=== PATIENT | male | born 1965 | race Two or more races ===

== ENCOUNTER 2024-09-06 15:10 | Outpatient (AMB) | payer OTHER, SELFPAY ==
--- NOTE | 2024-09-06 15:18 | A.OFFPC_ITS ---
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 Accompanied by: Self / Same As Patient Allergies No Known Allergies Allergy (Verified 09/06/24 15:33) Medication List - Last Reconciled 09/06/24 by Katherine Palacios PA-C metformin 500 mg PO BID Tobacco use date assessed: 09/06/24 Dental Screening Dental Screen Date: 09/06/24 Did you have a dental visit in the last 12 months?: Yes Did you have a dental problem in the last 6 months where you did not have access to dental care?: No Was dental information given to patient?: Patient has dentist (has upper dentures) HPI establish care HPI Details The patient is a 59-year-old male presenting to establish a new primary care provider and for the management of Type 2 Diabetes Mellitus and associated gastrointestinal discomfort from Metformin use. The patient has been taking Metformin 500 mg twice daily but experiences gastrointestinal discomfort, particularly when taking a 1000 mg dose, which causes stomach upset. He reports that the quick-release formulation exacerbates these symptoms, and he is interested in trying the extended-release version to alleviate this issue. The patient has not been regularly monitoring his blood glucose levels and last checked them six months ago. He has been using natural remedies such as kombucha and kefir, which he feels have been beneficial, although he acknowledges the need for more exercise. Additionally, the patient reports a sensation of coldness in his legs, which he attributes to possible venous issues. He maintains an active lifestyle by performing foot exercises to keep his legs active. 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 - He currently lives with his and sandy max, having moved to be closer to family. - The patient engages in physical activi ty through foot exercises to maintain leg function. [facility] Medical History (Updated 09/06/24 @ 15:59 by Katherine Palacios PA-C) Type 2 diabetes mellitus with hemoglobin A1c goal of less than 7.0% Class 1 obesity with body mass index (BMI) of 31.0 to 31.9 in adult Varicose veins of both lower extremities Establishing care with new doctor, encounter for Family History Father Diabetes Parkinson disease Mother Aneurysm Social History Housing: Apartment Alcohol intake: current Alcohol intake frequency: does not drink Patient Tobacco Use Status: Never used Tobacco service: No Current occupational status: employed Cognitive needs: No Hearing needs: No Vision needs: Yes (reading glasses) Questionnaire PHQ-9 Over the last 2 weeks, how often have you been bothered by any of the following problems? 1. Little interest or pleasure in doing things: not at all 2. Feeling down, depressed, or hopeless: not at all 3. Trouble falling or staying asleep, or sleeping too much: not at all 4. Feeling tired or having little energy: not at all 5. Poor appetite or overeating: not at all 6. Feeling bad about yourself - or that you are a failure or have let yourself or your family down: not at all 7. Trouble concentrating on things, such as reading the newspaper or watching television: not at all 8. Moving or speaking so slowly that other people could have noticed. Or the opposite - being so fidgety or restless that you have been moving around a lot more than usual: not at all 9. Thoughts that you would be better off or of hurting yourself in some way: not at all Total score: 0 Depression Screening Interpretation: Negative Depression Screening Done: Yes 64491 - PHQ-9 Billing: Yes Source: Developed by Drs. Candido Montero, Lexi Corbett, Lobo Vivas and colleagues, with an educational kristy from [employer]. Thrive Questionnaire Date Thrive assessed: 09/06/24 I am a: Patient What is your living situation today?: I have a steady place to live Within the past 12 months, did the food you bought not last and you didn't have the money to get more?: Never true Within the past 12 months, did you worry whether your food would run out before you got money to buy more?: Never true Do you have trouble paying for medicines?: No Do you have trouble getting transportation to medical appointments?: No Do you have trouble paying your heating and electricity bill?: No Do you have trouble taking care of your child, family member or friend?: No Do you have trouble with day-to-day activities such as bathing, preparing meals, shopping, managing finances, etc.?: No Are you currently unemployed and looking for a job?: No Are you interested in more education?: No Please select the resources that you would like help with: None THRIVE Score: 0 AUDIT C Alcohol Use Questionnaire (AUDIT-C) 1. How often do you have a drink containing alcohol?: Never 3. How often do you have six or more drinks on one occasion?: Never Total Score: 0 Score Reviewed/Action Taken: No ESCOBAR-7 AMB Questionnaire ESCOBAR-7 Date ESCOBAR - 7 assessed: 09/06/24 Feeling nervous, anxious, or on edge: 0 = Not at all Not being able to stop or control worryin = Not at all Worrying too much about different things: 0 = Not at all Trouble relaxin = Not at all Being so restless that it is hard to sit still: 0 = Not at all Becoming easily annoyed or irritable: 0 = Not at all Feeling afraid as if something awful might happen: 0 = Not at all Total ESCOBAR-7 score (0-4 normal; 5-9 mild; 10-14 moderate; 15-21 severe): 0 Source: Developed by Drs. Candido Montero, Lexi Corbett, Lobo Vivas and colleagues, with an educational kristy from [employer]. ESCOBAR-7 Assessment Billing ESCOBAR-7 Assessment Tool: ESCOBAR-7 Assessment 56081 Review of Systems Const Details: - Gastrointestinal: Reports gastrointestinal discomfort with Metformin use. - Endocrine: Reports not regularly checking blood glucose levels. - Musculoskeletal: Reports sensation of coldness in legs, denies cramps. Physical exam (Primary Care) Vital Signs: Last Vital Signs Temp 97.6 F 09/06/24 15:23 Pulse 68 09/06/24 15:23 Resp 16 09/06/24 15:23 BP 115/66 09/06/24 15:23 Pulse Ox 99 09/06/24 15:23 Oxygen Delivery Method Room Air 09/06/24 15:23 Care Plan Goal for BP management: <140/90 at Goal BMI result Body Mass Index 31.1 BMI Assessment/Plan discussion: High BMI High, discussed plan: lifestyle, weight reduction, dietary, physical activity, alcohol moderation and other Tobacco/Smoking Status: Tobacco use Status Tobacco use date assessed 09/06/24 09/06/24 15:29 Patient Tobacco Use Status Never used Tobacco 09/06/24 15:29 PHQ-9: PHQ-9 Score PHQ-9: Total score 0 09/06/24 15:34 Depression Screening Interpretation: Negative Thrive Assessment: Date of Thrive Assessment Date Thrive assessed 09/06/24 09/06/24 15:29 Const Other: Appearance: Alert. Oriented X3. No acute distress. Head: Normal external exam. Normocephalic. Atraumatic. Eyes: Pupils are equal, round, and reactive to light. Extraocular movements intact. Conjunctiva and sclera normal. Eyelids normal. Ears: External auditory canal normal. Tympanic membranes normal. Throat: Pharynx normal. Uvula midline. Moist mucous membranes. Neck: Normal inspection. Neck supple. Full range of motion. No adenopathy. Thyroid Normal. No meningeal signs. No neck mass noted. Cardiovascular: Normal heart rate and rhythm. Heart sound normal. No murmurs noted. Pulses normal throughout. Respiratory: No respiratory distress. Painless inspiration. Breath sounds normal. No wheezes/rales/rhonchi noted. Chest nontender. No accessory muscle usage noted or decreased air movement noted. Abdomen: Soft and nontender. Bowel sounds normal in all 4 quadrants. No distention noted. No organomegaly noted. No visible injury noted. Back: No costovertebral angle tenderness. Full range of motion noted. Skin: Skin warm and dry. Normal skin color. Normal skin turgor. No rashes/lesions/lacerations noted. Extremities: No lower extremity edema. Extremities exhibit normal range of motion. Extremities nontender. Patient reports feeling of coldness in the legs, but no swelling observed. Neuro: Oriented X 3. No motor deficit. No sensory deficit. Reflexes normal. Results AMB Hemoglobin A1c AMB Hemoglobin A1c 10.2 % Last Edit by KARISHMA Perales on 09/06/24 15:4 3 Results Reviewed Results Reviewed: - Labs: Hemoglobin A1c 10.2%. Coding Level of Care Code New Pt Level 4 (46217) Complex EM visit Add On G2211 Diagnoses Establishing care with new doctor, encounter for Z76.89 Type 2 diabetes mellitus with hemoglobin A1c goal of less than 7.0% E11.9 Varicose veins of both lower extremities I83.93 Class 1 obesity with body mass index (BMI) of 31.0 to 31.9 in adult E66.811; Z68.31 Additional Codes PHQ-9 - 70795 - PHQ-9 Billing: Yes ([id number]) ESCOBAR-7 Assessment Billing - ESCOBAR-7 Assessment Tool: ESCOBAR-7 Assessment 78523 ([id number]) Assessment & Plan Assessment & Plan (1) Establishing care with new doctor, encounter for: Code(s): Z76.89 - Persons encountering health services in other specified circumstances Category: Medical (2) Type 2 diabetes mellitus with hemoglobin A1c goal of less than 7.0%: Code(s): E11.9 - Type 2 diabetes mellitus without complications Category: Medical Plan: The patient's Metformin dosage will be adjusted to 1000 mg extended-release twice daily to minimize gastrointestinal side effects. He is advised to monitor his blood glucose levels three times daily before meals and return for follow-up in one month. A new glucometer will be provided to ensure accurate readings. Condition is chronic and stable continue to monitor. (3) Varicose veins of both lower extremities: Code(s): I83.93 - Asymptomatic varicose veins of bilateral lower extremities Category: Medical Plan: The patient reports cold sensation in legs, possibly related to venous issues, and will be referred to a specialist if symptoms persist. Condition is chronic and stable continue to monitor. (4) Class 1 obesity with body mass index (BMI) of 31.0 to 31.9 in adult: Code(s): E66.811 - Obesity, class 1; Z68.31 - Body mass index [BMI] 31.0-31.9, adult Category: Medical Plan: Patient isn't improved diet and exercise regimen. Condition is chronic and stable will continue to monitor. Plan Plan Patient was informed and verbally consented to the use of an ambient scribe for clinic note documentation during this visit. 1. Type 2 Diabetes Mellitus The patient's Metformin dosage will be adjusted to 1000 mg extended-release twice daily to minimize gastrointestinal side effects. He is advised to monitor his blood glucose levels three times daily before meals and return for follow-up in one month. A new glucometer will be provided to ensure accurate readings. 2. Gastrointestinal Discomfort Related To Metformin Use The patient will switch to Metformin extended-release to alleviate gastrointestinal discomfort. 3. Peripheral Cold Sensation In Legs The patient reports cold sensation in legs, possibly related to venous issues, and will be referred to a specialist if symptoms persist. I discussed with the patient the importance of managing his Type 2 Diabetes Mellitus through medication adjustment and regular glucose monitoring. We reviewed the potential benefits of switching to Metformin extended-release to reduce gastrointestinal side effects. The patient was informed about the need for follow-up in one month to assess the effectiveness of the treatment plan. Orders: Orders C Reactive Protein Today Z00.00 - Encounter for general adult medical examination without abnormal findings Complete Blood Count Auto Diff Today Z00.00 - Encounter for general adult medical examination without abnormal findings Comprehensive [place]. Panel Fast Today Z00.00 - Encounter for general adult medical examination without abnormal findings Liver Panel Today Z00.00 - Encounter for general adult medical examination without abnormal findings AMB Hemoglobin A1c Today E10.9 - Type 1 diabetes mellitus without complications Lipid Panel Today Z00.00 - Encounter for general adult medical examination without abnormal findings Magnesium Today Z00.00 - Encounter for general adult medical examination without abnormal findings Vitamin B12 and Folate Today Z00.00 - Encounter for general adult medical examination without abnormal findings Vitamin D 25-OH Total Today Z00.00 - Encounter for general adult medical examination without abnormal findings TSH reflex Free T4 Today Z00.00 - Encounter for general adult medical examination without abnormal findings PSA,Total (Free>4and<10) Today Z00.00 - Encounter for general adult medical examination without abnormal findings Microalbumin, Random (w Creat) Today E11.9 - Type 2 diabetes mellitus without complications Referrals Vascular Surgery Referral I83.93 - Asymptomatic varicose veins of bilateral lower extremities Medications: New blood-glucose meter (Accu-Chek Guide Glucose Meter) Patient to check blood glucose level TID at breakfast, lunch and dinner. 1 ea 1RF E11.9 - Type 2 diabetes mellitus without complications lancets (Accu-Chek Fastclix Lancet Drum) Check glucose 3 times a day before meals 200 ea 1RF E11.9 - Type 2 diabetes mellitus without complications metformin ER 1,000 mg PO BID 90 tabs 1RF blood sugar diagnostic (Accu-Chek Guide test strips) Glucose 3 times a day before meals 100 ea 1RF E11.9 - Type 2 diabetes mellitus without complications lancing device with lancets (Accu-Chek FastClix Lancing Device kit) Check glucose 3 times a day before meals 1 ea 1RF E11.9 - Type 2 diabetes mellitus without complications alcohol swabs (Alcohol Pads) 1 pad topical TIDWMEAL 100 ea 1RF Patient Instructions: - Take Metformin 1000 mg extended-release twice daily. - Monitor blood glucose levels three times daily before meals. - Return for follow-up in one month with glucose readings. - Contact the clinic if there are issues with the pharmacy or medication.
[2024-09-06 15:23] VITALS: BP 115/66; PULSE 68; RESP 16; TEMP 36.4; O2SAT 99; BMI 31.1
--- OUTSIDE RECORDS SUMMARY | 2024-09-06 16:59 | XMS_ITS | Patient Health Record ---
Author Organization [facility] Address [address] [address] Care Team Providers Care Transit Planner Name Role Phone Earl JUNIOR, Claudette Primary Care Provider Unavail chuck Bergeron MD, Gerry Unavailable [phone] Reason For Referral No Information Medications Medication SIG (Take, Route, Frequency, Duration) Notes Start Date End Date Status Clenpiq 10-3.5-12 MG-GM -GM/160ML ml Orally As directed for 1 days Active Problems Problem Type SNOMED Code ICD Code Onset Dates Problem Status W/U Status Risk Notes Problem Type II diabetes mellitus without complication (730361148) Type 2 diabetes mellitus without complication, unspecified whether director long term care insulin use (E11.9) Active confirmed Problem Obstructive sleep apnea syndrome ([id number]) Obstructive sleep apnea on CPAP (G47.33) Active confirmed Plan Of Treatment No Information Insurance Providers Payer Name Payer Address Payer Phone Subscriber Number Group Number Insured Name Patient Relationship to Insured Coverage Start Date Coverage End Date [facility] [address] [place], [place] [id number] Paco Santana Self - patient is the insured
== END 2024-09-06 15:55 | disposition home or self-care (01) ==
LOC: HO.HMCSH 15:10
PROVIDERS: Visit Provider Physician Assistant Medical
DX: Z76.89 Persons encountering health services in other specified circumstances (principal); E11.9 Type 2 diabetes mellitus without complications; I83.93 Asymptomatic varicose veins of bilateral lower extremities; E66.811 Obesity, class 1; Z68.31 Body mass index [BMI] 31.0-31.9, adult; E10.9 Type 1 diabetes mellitus without complications

== ENCOUNTER → 2024-09-06 15:10 | Outpatient (BNVA) | payer SELFPAY | PROVIDERS: Visit Provider Physician Assistant Medical | DX: E11.9 Type 2 diabetes mellitus without complications (principal); I83.93 Asymptomatic varicose veins of bilateral lower extremities; E66.811 Obesity, class 1; R10.9 Unspecified abdominal pain; Z68.31 Body mass index [BMI] 31.0-31.9, adult; Z76.89 Persons encountering health services in other specified circumstances; Z79.84 Long term (current) use of oral hypoglycemic drugs | CPT/HCPCS: 83036; 96127 ==

== ENCOUNTER 2024-09-14 15:28 | Outpatient (AMB) | payer OTHER, SELFPAY ==
--- NOTE | 2024-09-14 15:31 | A.OFFVIS_ITS ---
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 He states he gets cold sensations in his legs. 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 Complaints include discomfort and slight swelling of lower extremities. It has been affecting their daily activities including walking, standing, and physical activity. It is noted in bilateral legs/feet. 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 He states that hot showers and relaxing does help a little. He states he has been less active since moving here from [place], and there is also a big change in climate. He is a diabetic and his most recent A1C is 10.2%, on 09/06/24. He is a nonsmoker. Patient denies any previous venous surgery or injections. Patient denies any history of DVT/ PE. Patient denies any history of phlebitis. Trial of compression includes - hot showers;relaxing helps They now present for vascular evaluation regarding their varicose veins. [facility] Medical History Type 2 diabetes mellitus with hemoglobin A1c goal of less than 7.0% Class 1 obesity with body mass index (BMI) of 31.0 to 31.9 in adult Varicose veins of both lower extremities Establishing care with new doctor, encounter for Family History Father Diabetes Parkinson disease Mother Aneurysm Social History Housing: Apartment Alcohol intake: current Alcohol intake frequency: does not drink Patient Tobacco Use Status: Never used Tobacco service: No Current occupational status: employed Cognitive needs: No Hearing needs: No Vision needs: Yes (reading glasses) Review of Systems Const Reports as per HPI and Denies weakness ENT Reports Normal hearing present and Denies dizziness Card Reports as per HPI, Denies chest pain, Denies chest pain at rest, Denies chest pain with activity, Denies dyspnea and Denies dyspnea on exertion Resp Reports as per HPI, Denies cough, Denies dyspnea and Denies dyspnea on exertion GI Reports as per HPI, Denies abdominal pain, Denies nausea and Denies vomiting Musc Denies numbness Skin/Breast Reports as per HPI, Denies erythema and Denies wounds Neuro Reports Normal hearing present, Denies dizziness, Denies numbness, Denies Sensory deficit (Neuro) and Denies weakness Psych Reports no additional complaints Endo Reports no additional complaints Physical Exam Const General: healthy appearing and no acute distress Orientation/consciousness: patient oriented x3 HEENT Head: Yes normal to inspection Ears: hearing grossly normal bilaterally Mouth: Normal oral and palatal mucosa present Resp Effort & Inspection: normal respiratory effort and able to speak in complete sentences Auscultation: clear to auscultation bilaterally Cardio Jugular venous distension: no JVD Rate: regular rate Rhythm: regular rhythm Heart sounds: S1 normal heart sound present and S2 normal heart sound present Bruits: no abdominal aortic bruits, no carotid bruits, no femoral bruits and no renal bruits Peripheral pulses: Peripheral pulses 2+ throughout GI Inspection: Yes normal to inspection Palpation (GI): No Abdominal aortic bruit present Skin General skin exam: no rashes or lesions noted Wounds: no wounds Hair: normal Neuro General: patient oriented x3 Cranial nerves: Yes Normal hearing present Cognition (Neuro): normal cognition Gait exam (Neuro): Normal gait present Motor exam (neuro): 5/5 motor strength present throughout Sensory Exam: No Sensory deficit (Neuro) Extrem Other: Bilateral lower extremities/feet: trace peripheral edema noted. No discolorations noted. No varicosities or tortuosities noted. Palpable DP pulses. CEAP: C - 3 E - primary A - superficial P - reflux General: Yes normal to inspection, Yes full ROM, Yes capillary refill normal and Yes normal gait Assessment & Plan Assessment & Plan (1) Varicose veins of both lower extremities with inflammation: Code(s): I83.11 - Varicose veins of right lower extremity with inflammation; I83.12 - Varicose veins of left lower extremity with inflammation Category: Medical Plan: Paco is presenting today on a referral from his PCP for concerns of bilateral feet/lower extremity cool feelings. In short, the patient has evidence of venous insufficiency. I have discussed the pathophysiology with the patient. In addition I have provided informational material regarding venous disease to the patient. We have discussed conservative measures including compression, elevation, and exercise. We were able to provide him with compression socks to trial; I discussed with him to try them at work, particularly when he is sitting down for hours. We also discussed the importance of getting up every hour or so and walk around. I have taken the liberty of ordering venous insufficiency testing with the patient. They will follow up with me after testing. The patient had an opportunity to ask questions regarding the treatment plan. All questions were answered. Imaging studies, laboratory studies and physical exam results were discussed and reviewed in detail. No major barriers to understanding were identified. The patient expressed understanding and agreement with the above treatment plan. The patient is aware they should contact our office by phone for worsening of the current condition or the appearance of new symptoms. Thank you for allowing me to participate in the vascular care of this patient. If you have any questions or concerns regarding the treatment for the above condition please do not hesitate to contact me. The office telephone contact is [phone]. This note is constructed using voice recognition software. While every effort has been made to ensure accuracy, aviation support equipment repairer errors may have been included. Thank you for allowing me to participate in the care of your patient. Yours sincerely, SUDHIR Ramires Orders: Orders US venous duplex LE BI 1 Week I83.11 - Varicose veins of right lower extremity with inflammation, I83.12 - Varicose veins of left lower extremity with inflammation Coding Level of Care Code New Pt Level 4 (66780) Diagnoses Varicose veins of both lower extremities with inflammation I83.11; I83.12
== END 2024-09-14 15:46 | disposition home or self-care (01) ==
LOC: HO.HVS 15:29
PROVIDERS: Visit Provider Physician Assistant Surgical
DX: I83.11 Varicose veins of right lower extremity with inflammation (principal); I83.12 Varicose veins of left lower extremity with inflammation
CPT/HCPCS: 99204